=== PATIENT | female | born 1980 | race American Indian/Alaskan Native ===

== ENCOUNTER 2020-08-01 20:30 | Emergency (ER) | payer MEDICAID ==
--- NOTE | 2020-08-01 21:03 | Event Note ---
ED Screening Note Date of service: 08/01/20 ED Screening Note: Patient is a 40 yo AA female with a h/o mornid obesity and kidney stones who presents to the ED with complaint of acute onset persistent right flank pain that radiates to the right upper quadrant area with nausea and vomiting for the last 5 days. Patient states that these symptoms are similar to what she felt when she had kidney stones a few years ago and had to undergo lithotripsy procedure about 10 years ago. Patient states that the pain has been constant and persistent with lightheadedness. Patient also complains of dysuria, urinary frequency and urgency and "dark urine". Patient denies chest pain, shortness of breath, fever, chills, vaginal bleeding, diarrhea, dizziness, syncope, sore throat, headache, low back pain, change in vision or cough. This initial assessment/diagnostic orders/clinical plan/treatment(s) is/are subject to change based on patients health status, clinical progression and re- assessment by fellow clinical providers in the ED. Further treatment and workup at subsequent clinical providers discretion. Patient/guardian urged not to elope from the ED as their condition may be serious if not clinically assessed and managed. Initial orders include: CBC, CMP, lipase, UA, hCG serum, CT abdomen pelvis without contrast
[2020-08-01 21:34] LABS: Basophils % (Auto) 0.5 % (0.0-1.8); Eosinophils # (Auto) 0.2 K/mm3 (0.0-0.4); Eosinophils % (Auto) 2.3 % (0.0-4.3); Hemoglobin 12.3 gm/dl (10.1-14.3); Lymphocytes # (Auto) 2.3 K/mm3 (1.2-5.4); Lymphocytes % (Auto) 32.8 % (13.4-35.0); Mean Corpuscular HGB Conc 32 % (30-34); Mean Corpuscular Volume 85 fl (79-97); Monocytes # (Auto) 0.5 K/mm3 (0.0-0.8); Monocytes % (Auto) 6.7 % (0.0-7.3); Platelet Count 356 K/mm3 (140-440); Red Blood Count 4.47 M/mm3 (3.65-5.03)
[2020-08-01 21:50] LABS: Alanine Aminotransferase 10 units/L (7-56); Albumin 3.9 g/dL (3.9-5); BUN/Creatinine Ratio 16; Blood Urea Nitrogen 13 mg/dL (7-17); Calcium 8.9 mg/dL (8.4-10.2); Hemolysis Index 8
[2020-08-01] MEDS ORDERED: oxyCODONE /ACETAMINOPHEN 5-325MG TAB PO ONE (23:34)
--- NOTE | 2020-08-01 23:35 | Cat Scan Report ---
CT OF THE ABDOMEN AND PELVIS WITHOUT CONTRAST INDICATION / CLINICAL INFORMATION: Right flank and RUQ pain. TECHNIQUE: All CT scans at this location are performed using CT dose reduction for ALARA by means of automated e xposure control. COMPARISON: None available. FINDINGS: ABDOMEN: There is cortical scarring involving the right kidney, more prominent in the lower pole. The re are several tiny nonobstructive right renal calculi. There is no evidence of hydronephrosis. The l eft kidney is unremarkable. The gallbladder is surgically absent. The liver, spleen, bile ducts, pancreas, adrenal glands and bow el are normal. No adenopathy is seen. The lung bases are clear. PELVIS: The distal ureters and urinary bladder are normal. The uterus and ovaries are normal in appea tulio. A normal appendix is present and there is no evidence of diverticulitis. No abnormal mass or f luid collection is seen. I do not identify a hernia. No acute osseous abnormality is present. IMPRESSION: 1. Right renal cortical scarring and nonobstructive nephrolithiasis. 2. Prior cholecystectomy. 3. No acute intra-abdominal disease is identified. Signer Name: Álvaro Dawn MD Signed: 08/01/2020 11:31 PM Workstation Name: [id number]
--- NOTE | 2020-08-01 23:41 | Emergency Department Report ---
ED General Adult HPI - General Chief complaint: Abdominal Pain Stated complaint: ABDOMINAL PAIN/TOOTHACE PUI?: No Time Seen by Provider: 08/01/20 23:07 Source: patient, RN notes reviewed Mode of arrival: Ambulatory Limitations: No Limitations - History of Present Illness Initial comments: The patient was evaluated in the emergency department for symptoms described in the history of present illness. He/she was evaluated in the context of the global COVID-19 pandemic, which necessitated consideration that the patient might be at risk for infection with the virus that causes COVID-19. Institutional protocols and algorithms that pertain to the evaluation of patients at risk for COVID-19 are in a state of rapid change based on information released by regulatory bodies including the CDC and federal and state organizations. These policies and algorithms were followed during the patient's care in the emergency department. Please note that these policies, procedures and recommendations changed on a rapid basis. During the history and physical examination, I am chaperoned by nurse Sarah Yadav The patient is a 40-year-old female. She is not known to myself previously. She does not have a local primary care doctor. Past medical history includes obesity, sleep apnea, pulmonary embolism 10 years ago, and renal colic. The patient presents to the ER today with multiple complaints. Surgical history significant for lithotripsy, and cholecystectomy. Her first primary complaint is abdominal pain. Abdominal pain is epigastric, right upper quadrant, right flank, and right posterior back. It is present over the past 2 to 3 days. It is sharp and increases with palpation and decreases with rest. Positive dysuria. Patient states "it feels like a kidney stone." The patient's next complaint is dentalgia over tooth #22, 23, 24 and 25. She has not seen a dentist in years. She does not floss on a regular basis. The patient's next complaints is dizziness. She has been having intermittent spinning sensation and dizziness for the past year and a half, after mild blunt head injury. This dizziness is not a new, worsened or different. The patient's final complaint is intermittent shortness of breath. This has been going on for the past 2 to 3 days. The patient denies fever, loss of taste and smell, travel, surgery, oral contraceptive use, leg pain and leg swelling. Review of systems is negative for fever, chills, vomiting, chest pain, extremity weakness/numbness, ataxia. -: Gradual, days(s), week(s), month(s) Location: abdomen Radiation: back Quality: aching Consistency: intermittent Improves with: rest Worsens with: movement - Related Data Previous Rx's Medication Instructions Recorded Last Taken Type Acetaminophen [Non-Aspirin Extra 500 mg PO Q6HR PRN #30 tablet 08/02/20 Unknown Rx Strength] Chlorhexidine Mouthwash [Peridex] 15 ml MM BID #1 bottle 08/02/20 Unknown Rx Ibuprofen [Motrin] 600 mg PO Q8H PRN #30 tablet 08/02/20 Unknown Rx Metoclopramide [Reglan] 10 mg PO QID PRN #30 tablet 08/02/20 Unknown Rx Morphine Sulfate [Morphine Sulfate 7.5 mg PO Q6HR PRN #10 tablet 08/02/20 Unknown Rx IR] levoFLOXacin [Levaquin] 750 mg PO QDAY #6 tablet 08/02/20 Unknown Rx Allergies Allergy/AdvReac Type Severity Reaction Status Date / Time amoxicillin Allergy Hives Verified 08/01/20 21:35 Penicillins Allergy Hives Verified 08/01/20 21:36 Sulfa (Sulfonamide Allergy Hives Verified 08/01/20 21:36 Antibiotics) sulfamethoxazole Allergy Hives Verified 08/01/20 21:36 [From Bactrim] trimethoprim [From Bactrim] Allergy Hives Verified 08/01/20 21:36 ED Review of Systems ROS: Stated complaint: ABDOMINAL PAIN/TOOTHACE Other details as noted in HPI Constitutional: denies: fever Eyes: denies: vision change ENT: denies: epistaxis Respiratory: shortness of breath. denies: cough Cardiovascular: denies: chest pain Gastrointestinal: abdominal pain. denies: hematemesis, melena, hematochezia Genitourinary: dysuria Musculoskeletal: back pain Neurological: denies: weakness Hematological/Lymphatic: denies: easy bleeding ED Past Medical Hx - Past Medical History Previous Medical History?: Yes Hx Pulmonary Embolism: Yes (Was on Coumadin) Hx Kidney Stones: Yes Additional medical history: Sleep apnea - Surgical History Past Surgical History?: Yes Additional Surgical History: Lithotripsy for kidney stones - Medications Home Medications: Home Medications Medication Instructions Recorded Confirmed Last Taken Type Acetaminophen [Non-Aspirin Extra 500 mg PO Q6HR PRN #30 tablet 08/02/20 Unknown Rx Strength] Chlorhexidine Mouthwash [Peridex] 15 ml MM BID #1 bottle 08/02/20 Unknown Rx Ibuprofen [Motrin] 600 mg PO Q8H PRN #30 tablet 08/02/20 Unknown Rx Metoclopramide [Reglan] 10 mg PO QID PRN #30 tablet 08/02/20 Unknown Rx Morphine Sulfate [Morphine Sulfate 7.5 mg PO Q6HR PRN #10 tablet 08/02/20 Unknown Rx IR] levoFLOXacin [Levaquin] 750 mg PO QDAY #6 tablet 08/02/20 Unknown Rx ED Physical Exam - General Limitations: No Limitations General appearance: alert, in no apparent distress - Head Head exam: Present: atraumatic, normocephalic - Eye Eye exam: Present: normal appearance, PERRL, EOMI, other (Visual acuity intact to finger counting, color perception, reading at a close distance). Absent: nystagmus - ENT ENT exam: Present: normal exam, normal orophraynx, mucous membranes moist, normal external ear exam, other (Patient speaking in full sentences. There is no stridor or dysphonia. There is no elevation of the base of the tongue. Patient noted to have excessive dental tartar, with gingival inflammation. No odontogenic abscesses noted.) - Neck Neck exam: Present: normal inspection, full ROM. Absent: tenderness, meningismus - Respiratory Respiratory exam: Present: normal lung sounds bilaterally. Absent: respiratory distress, wheezes, rales, rhonchi, stridor, decreased breath sounds - Cardiovascular Cardiovascular Exam: Present: regular rate, normal rhythm, normal heart sounds. Absent: bradycardia, tachycardia, irregular rhythm, systolic murmur, diastolic murmur, rubs, gallop - GI/Abdominal GI/Abdominal exam: Present: soft, tenderness, other (Right upper quadrant tender, right flank tender. No right lower quadrant tenderness noted). Absent: distended, guarding, rebound, pulsatile mass - Extremities Exam Extremities exam: Present: normal inspection, full ROM, other (2+ pulses noted in the bilateral upper and lower extremities. There is no palpable cord. negative Homans sign. Muscular compartments are soft. The pelvis is stable.). Absent: pedal edema, calf tenderness - Back Exam Back exam: Present: normal inspection, full ROM. Absent: tenderness, CVA tenderness (R), CVA tenderness (L), paraspinal tenderness, vertebral tenderness - Neurological Exam Neurological exam: Present: alert, oriented X3, normal gait, other (There is no facial droop. The tongue is midline. Extraocular movements are intact bilaterally. There is 5 out of 5 strength in bilateral upper and lower extre mities. Sensation is intact to light touch bilateral upper and lower extremities. There is no past-pointing. There is no pronator drift.). Absent: motor sensory deficit - Psychiatric Psychiatric exam: Present: normal affect, normal mood - Skin Skin exam: Present: warm, dry, intact, normal color. Absent: rash ED Course Vital Signs 08/01/20 08/01/20 21:33 23:15 Temperature 98.9 F 98.3 F Pulse Rate 88 81 Respiratory 18 18 Rate Blood Pressure 121/78 Blood Pressure 114/73 [Left] O2 Sat by Pulse 98 98 Oximetry - Reevaluation(s) Reevaluation #1: 08/01/20 23:41 Differential diagnosis, including but not limited to: Pyelonephritis, renal colic, orthostasis, vagal event, pulmonary embolism, pulmonary hypertension, pulmonary embolism, pneumonia, physical deconditioning, poor dental hygiene Assessment and plan: 40-year-old female with multiple complaints. Complaint #1, abdominal pain, flank pain and dysuria. CT scan abdomen pelvis negative for surgical pathology. Urinalysis pending. Treat with oral medications. Reassess. Complaints #2, dentalgia. Patient needs to follow-up with a dentist. Discussed the importance of daily brushing and flossing, and proper oral hygiene. May discharge with Tylenol, ibuprofen, instructions to follow-up with dental, and chlorhexidine. Complaint #3, intermittent vertiginous dizziness, present for about a year and a half. GCS 15, NIH score of 0, nonfocal neurologic exam, walks with a steady gait. Supportive care, do not see indication for neuroimaging. Complete #4, intermittent shortness of breath, and discomfort with deep inspiration. Not currently tachycardic, tachypneic or hypoxic. However, she is obese, suspect noncompliance with CPAP/APAP probable component of pulmonary hypertension. However, she is not quite sure where her pulmonary embolism from 10 years ago came from. We will send D-dimer to risk stratify for pulmonary embolism, although I find the patient to be low pretest probability, obtain x- ray of the chest. Discussed the importance of appropriate diet and lifestyle modifications, weight loss, and water consumption. Reassess after initial data points. Reevaluation #2: 08/02/20 01:03 Reassessed. Feels improved. No active vomiting. Troponin negative x1. Symptoms present for days. Acute myocardial infarction excluded as per the [employer] clinical policy. Urinalysis suggestive of urinary tract infection. This is likely pyelonephritis. Patient tolerating liquid feeds, nontoxic-appearing, afebrile, with reassuring vital signs. Patient suitable for trial of oral outpatient antibiotic management. We will start Levaquin here in the emergency room, given her multiple allergies. Patient and I also discussed affordable prescription applications/[facility], explained to patient that she may obtain affordable prescriptions by shopping around. She verbalized understanding. D-dimer negative. Patient states that she has never had a formal sleep study and does not have a formal diagnosis of obstructive sleep apnea. I suspect that patient has undiagnosed obstructive sleep apnea, as she describes many of the classic symptoms. Patient instructed that she needs to follow-up with a sleep physician for formal outpatient sleep study. She verbalized understanding. She will need to follow-up with primary care, dental, and sleep physician. Patient observed in this ER for hours without clinical decompensation is suitable for trial of outpatient management. Emphasized the importance of weight loss, follow-up ED Medical Decision Making - Lab Data Result diagrams: 08/01/20 21:04 08/01/20 21:04 Vital Signs 08/01/20 21:33 Temperature 98.9 F Pulse Rate 88 Respiratory 18 Rate Blood Pressure 121/78 O2 Sat by Pulse 98 Oximetry Lab Results 08/01/20 08/01/20 08/01/20 Range/Units 21:04 21:04 21:04 WBC 7.0 (4.5-11.0) K/mm3 RBC 4.47 (3.65-5.03) M/mm3 Hgb 12.3 (10.1-14.3) gm/dl Hct 38.0 (30.3-42.9) % MCV 85 (79-97) fl MCH 28 (28-32) pg MCHC 32 (30-34) % RDW 14.0 (13.2-15.2) % Plt Count 356 (140-440) K/mm3 Lymph % (Auto) 32.8 (13.4-35.0) % Dillon % (Auto) 6.7 (0.0-7.3) % Eos % (Auto) 2.3 (0.0-4.3) % Baso % (Auto) 0.5 (0.0-1.8) % Lymph # (Auto) 2.3 (1.2-5.4) K/mm3 Dillon # (Auto) 0.5 (0.0-0.8) K/mm3 Eos # (Auto) 0.2 (0.0-0.4) K/mm3 Baso # (Auto) 0.0 (0.0-0.1) K/mm3 Seg Neutrophils % 57.7 (40.0-70.0) % Seg Neutrophils # 4.1 (1.8-7.7) K/mm3 Sodium 145 (137-145) mmol/L Potassium 3.5 L (3.6-5.0) mmol/L Chloride 108.4 H (98-107) mmol/L Carbon Dioxide 26 (22-30) mmol/L Anion Gap 14 mmol/L BUN 13 (7-17) mg/dL Creatinine 0.8 (0.6-1.2) mg/dL Estimated GFR > 60 ml/min BUN/Creatinine Ratio 16 % Glucose 106 H (65-100) mg/dL Calcium 8.9 (8.4-10.2) mg/dL Total Bilirubin 0.20 (0.1-1.2) mg/dL AST 14 (5-40) units/L ALT 10 (7-56) units/L Alkaline Phosphatase 64 (35-129) units/L Total Protein 6.6 (6.3-8.2) g/dL Albumin 3.9 (3.9-5) g/dL Albumin/Globulin Ratio 1.4 % Lipase 39 (13-60) units/L HCG, Qual Negative (Negative) - EKG Data 08/01/20 23:37 Sinus rhythm, 68 bpm. Normal axis, normal intervals, poor R wave progression, borderline high left ventricular voltage. Abnormal EKG. Not a STEMI. - Radiology Data Radiology results: report reviewed, image reviewed CT OF THE ABDOMEN AND PELVIS WITHOUT CONTRAST INDICATION / CLINICAL INFORMATION: Right flank and RUQ pain. TECHNIQUE: All CT scans at this location are performed using CT dose reduction for ALARA by means of automated exposure control. COMPARISON: None available. FINDINGS: ABDOMEN: There is cortical scarring involving the right kidney, more prominent in the lower pole. There are several tiny nonobstructive right renal calculi. There is no evidence of hydronephrosis. The left kidney is unremarkable. The gallbladder is surgically absent. The liver, spleen, bile ducts, pancreas, adrenal glands and bowel are normal. No adenopathy is seen. The lung bases are clear. PELVIS: The distal ureters and urinary bladder are normal. The uterus and ovaries are normal in appearance. A normal appendix is present and there is no evidence of diverticulitis. No abnormal mass or fluid collection is seen. I do not identify a hernia. No acute osseous abnormality is present. IMPRESSION: 1. Right renal cortical scarring and nonobstructive nephrolithiasis. 2. Prior cholecystectomy. 3. No acute intra-abdominal disease is identified. Signer Name: Álvaro Dawn MD Signed: 08/01/2020 10:31 PM Workstation Name: [id number] Critical care attestation.: If time is entered above; I have spent that time in minutes in the direct care of this critically ill patient, excluding procedure time. ED Disposition Clinical Impression: Pyelonephritis, Dentalgia, Acute abdominal pain in right upper quadrant Obesity Qualifiers: Obesity type: unspecified obesity type Obesity classification: unspecified obesity classification Serious obesity comorbidity presence: unspecified whether serious comorbidity present Qualified Code(s): E66.9 - Obesity, unspecified Dyspnea Qualifiers: Dyspnea type: other forms of dyspnea Qualified Code(s): R06.09 - Other forms of dyspnea Disposition: DC-01 TO HOME OR SELFCARE Is pt being admited?: No Does the pt Need Aspirin: No Condition: Stable Instructions: Abdominal Pain (ED), Shortness of Breath, Adult, [id number], Pyelonephritis, Adult, [id number], Obesity, Adult Additional Instructions: Patient most likely has a mild kidney infection. Take the antibiotics, pain medication as needed and directed, nausea medication as needed/directed. Do not drive or consume alcohol when taking the morphine sulfate for pain. Do not consume alcohol for the next week, while taking antibiotics. Cultures were sent today, and results will be available in the next 3 to 5 days. Please have a primary care doctor contact the medical records department to obtain culture results. Please follow-up with the primary care doctor, such as Dr. Lerner, Within the next week for repeat checkup/evaluation. Recommend that patient brush teeth at least twice daily, floss on a daily basis, and follow-up with a dentist within the next month. Recommend that patient drinks 6 cups of water per day indefinitely, and follow- up with a sleep physician, such as Dr. Patel or Dr Madrdi within the next month for outpatient sleep study. The patient most likely has obstructive sleep apnea. First-line treatment would be aggressive weight loss, exercise as t olerated, and modification of diet to avoid carbohydrates, and sugary drinks. However, strongly recommend outpatient follow-up with a sleep physician for sleep study, and probable initiation of CPAP/APAP. Noncompliance/inadequate treatment of sleep apnea may result in heart disease, stroke, disability, loss of quality of life, or . Please return to the emergency room right away with new pain, worsening pain, migration of pain, projectile vomiting, change in mental status, confusion, inab ility to tolerate liquid feeds, new, worsened or different symptoms not present on the initial emergency room evaluation. Referrals: SHRUTHI MADRID MD [Staff Physician] - as needed ROSA PATEL MD [Staff Physician] - as needed [facility] [Outside] - as needed KI LERNER MD [Staff Physician] - 7-10 days Heart Score - HEART Score History: Slightly suspicious EKG: Non-specific Age: < 45 Risk factors: 1-2 risk factors Troponin: < normal limit HEART Score: 2 - Critical Actions Critical Actions: 0-3 pts:0.9-1.7%risk of adverse cardiac event.Candidate for discharge
[2020-08-01 23:59] VITALS: BP 114/73
--- NOTE | 2020-08-02 00:06 | XRay Report ---
CHEST 1 VIEW 11:53 PM INDICATION / CLINICAL INFORMATION: Dyspnea. Right upper quadrant/flank pain. COMPARISON: None available. FINDINGS: SUPPORT DEVICES: None. HEART / MEDIASTINUM: The heart size and pulmonary vasculature are normal. LUNGS / PLEURA: No significant pulmonary or pleural abnormality. No pneumothorax. ADDITIONAL FINDINGS: The visualized upper abdomen is unremarkable. IMPRESSION: No acute findings. Signer Name: Álvaro Dawn MD Signed: 08/02/2020 12:02 AM Workstation Name: [id number]
[2020-08-02 00:31] LABS: INR 0.95 (0.87-1.13)
[2020-08-02 00:54] LABS: Bacteria,Urine 2+ /HPF (Negative); Bilirubin,Urine NEG (Negative); Blood,Urine NEG (Negative); Color,Urine Yellow (Yellow); Mucus,Urine 2+ /HPF; Protein,Urine <15 mg/dL mg/dL (Negative)
[2020-08-02] MEDS ORDERED: levoFLOXacin 750 MG TAB PO ONE (01:02)
== END 2020-08-02 01:25 | disposition home or self-care (01) ==
LOC: ED 20:30
DX: N12 Tubulo-interstitial nephritis, not specified as acute or chronic (principal); K08.89 Other specified disorders of teeth and supporting structures; E66.9 Obesity, unspecified; R06.00 Dyspnea, unspecified; Z79.899 Other long term (current) drug therapy; Z88.2 Allergy status to sulfonamides; Z88.8 Allergy status to other drugs, medicaments and biological substances
CPT/HCPCS: 36415; 71045; 74176; 80053; 81001; 83690; 84484; 84703; 85025; 85379; 85610; 87086; 93005

== ENCOUNTER 2020-08-11 12:45 | Emergency (ER) | payer MEDICAID ==
--- NOTE | 2020-08-11 13:39 | Emergency Department Report ---
ED Chest Pain HPI - General Chief Complaint: Chest Pain Stated Complaint: CHEST PAINS Time Seen by Provider: 08/11/20 13:38 Source: patient, EMS Mode of arrival: Stretcher Limitations: No Limitations - History of Present Illness Initial Comments: This is a 40-year old female who upon my encounter states that she is "hurting all over". She is in no distress. She is texting on her cell phone. After some prodding she does admit to me that she called the ambulance for chest pain and shortness of breath. It was somewhat surprising that that was not her chief complaint. In any case she describes the chest pain as midsternal and heavy. She states that she has not had this before. She does not describe ongoing dyspnea nor recent cough. She did state that she had some dizziness. She did not vomit. She did not have any apparent diaphoresis. She denies calf or thigh swelling or pain. She has had no recent travel. She does not take the control pill. She is not a smoker. She gives a negative family history for VTE and CAD. She states her father had a stroke. In any case at this time the chest pain etc. has subsided. It began not long before ambulance arrival. MD Complaint: chest pain -: Gradual, minutes(s) Onset: during rest Pain Location: substernal Pain Radiation: none Severity: moderate Quality: heaviness Consistency: now resolved Improves With: nothing Worsens With: nothing re: dyspnea Other Symptoms: other (Dizziness). denies: cough, fever, syncope Aspirin use within the Past 7 Days: (0) No - Related Data Previous Rx's Medication Instructions Recorded Last Taken Type Acetaminophen [Non-Aspirin Extra 500 mg PO Q6HR PRN #30 tablet 08/02/20 Unknown Rx Strength] Chlorhexidine Mouthwash [Peridex] 15 ml MM BID #1 bottle 08/02/20 Unknown Rx Ibuprofen [Motrin] 600 mg PO Q8H PRN #30 tablet 08/02/20 Unknown Rx Metoclopramide [Reglan] 10 mg PO QID PRN #30 tablet 08/02/20 Unknown Rx Morphine Sulfate [Morphine Sulfate 7.5 mg PO Q6HR PRN #10 tablet 08/02/20 Unknown Rx IR] levoFLOXacin [Levaquin] 750 mg PO QDAY #6 tablet 08/02/20 Unknown Rx Allergies Allergy/AdvReac Type Severity Reaction Status Date / Time amoxicillin Allergy Hives Verified 08/01/20 21:35 Penicillins Allergy Hives Verified 08/01/20 21:36 Sulfa (Sulfonamide Allergy Hives Verified 08/01/20 21:36 Antibiotics) sulfamethoxazole Allergy Hives Verified 08/01/20 21:36 [From Bactrim] trimethoprim [From Bactrim] Allergy Hives Verified 08/01/20 21:36 Heart Score - HEART Score History: Slightly suspicious EKG: Normal Age: < 45 Risk factors: No known risk factors Troponin: < normal limit HEART Score: 0 - Critical Actions Critical Actions: 0-3 pts:0.9-1.7%risk of adverse cardiac event.Candidate for discharge ED Review of Systems ROS: Stated complaint: CHEST PAINS Other details as noted in HPI Constitutional: denies: chills, fever Eyes: denies: eye pain, eye discharge, vision change ENT: denies: ear pain, throat pain Respiratory: shortness of breath. denies: cough, wheezing Cardiovascular: chest pain. denies: palpitations Endocrine: no symptoms reported Gastrointestinal: denies: abdominal pain, nausea, diarrhea Genitourinary: denies: urgency, dysuria, discharge Musculoskeletal: denies: back pain, joint swelling, arthralgia Skin: denies: rash, lesions Neurological: denies: headache, weakness, paresthesias Psychiatric: denies: anxiety, depression Hematological/Lymphatic: denies: easy bleeding, easy bruising ED Past Medical Hx - Past Medical History Previous Medical History?: Yes Hx Pulmonary Embolism: Yes (Was on Coumadin) Hx Kidney Stones: Yes Additional medical history: Sleep apnea - Surgical History Additional Surgical History: Lithotripsy for kidney stones - Social History Smoking Status: Former Smoker - Medications Home Medications: Home Medications Medication Instructions Recorded Confirmed Last Taken Type Acetaminophen [Non-Aspirin Extra 500 mg PO Q6HR PRN #30 tablet 08/02/20 Unknown Rx Strength] Chlorhexidine Mouthwash [Peridex] 15 ml MM BID #1 bottle 08/02/20 Unknown Rx Ibuprofen [Motrin] 600 mg PO Q8H PRN #30 tablet 08/02/20 Unknown Rx Metoclopramide [Reglan] 10 mg PO QID PRN #30 tablet 08/02/20 Unknown Rx Morphine Sulfate [Morphine Sulfate 7.5 mg PO Q6HR PRN #10 tablet 08/02/20 Unknown Rx IR] levoFLOXacin [Levaquin] 750 mg PO QDAY #6 tablet 08/02/20 Unknown Rx ED Physical Exam - General Limitations: Physical Limitation General appearance: alert, in no apparent distress, obese - Head Head exam: Present: atraumatic, normocephalic - Eye Eye exam: Present: normal appearance. Absent: scleral icterus - ENT ENT exam: Present: mucous membranes moist - Neck Neck exam: Present: normal inspection - Respiratory Respiratory exam: Present: normal lung sounds bilaterally. Absent: respiratory distress - Cardiovascular Cardiovascular Exam: Present: regular rate, normal rhythm. Absent: systolic murmur, diastolic murmur, rubs, gallop - GI/Abdominal GI/Abdominal exam: Present: soft, normal bowel sounds. Absent: distended, tenderness, guarding, rebound, rigid - Extremities Exam Extremities exam: Present: normal inspection. Absent: calf tenderness - Back Exam Back exam: Present: normal inspection - Neurological Exam Neurological exam: Present: alert, oriented X3, CN II-XII intact. Absent: motor sensory deficit - Psychiatric Psychiatric exam: Present: normal affect, normal mood - Skin Skin exam: Present: warm, dry, intact, normal color. Absent: rash ED Course Vital Signs 08/11/20 08/11/20 08/11/20 13:42 13:46 14:00 Temperature 98.2 F Pulse Rate 65 65 Respiratory 11 L 11 L Rate Blood Pressure 118/76 O2 Sat by Pulse 98 99 Oximetry - Reevaluation(s) Reevaluation #1: I reexamined the patient. She was actually sleeping. She was awoken. I asked her again about her history of blood clots. She now states that perhaps more than a decade ago she did have a pulmonary embolism and was on Coumadin for 6 months. Her prehospital EKG was also reviewed. It was normal. Patient now admits that the episode was associated with some situational stress. She is completely asymptomatic. Her D-dimer definitely not elevated. I think she is appropriate at this point for outpatient disposition. She will be referred for further evaluation with a local clinic and a wheel assembler. 08/11/20 15:15 KARLEY score - Karley Score Age > 65: (0) No Aspirin use within the Past 7 Days: (0) No 3 or more CAD Risk Factors: (0) No 2 or more Angina events in past 24 hrs: (0) No Known CAD with more than 50% Stenosis: (0) No Elevated Cardiac Markers: (0) No ST Deviation Greater than 0.5mm: (0) No KARLEY Score: 0 ED Medical Decision Making - Lab Data Result diagrams: 08/11/20 14:23 08/11/20 14:23 Laboratory Results - last 24 hr 08/11/20 08/11/20 14:23 14:23 WBC 5.5 RBC 3.90 Hgb 10.8 Hct 32.0 MCV 82 MCH 28 MCHC 34 RDW 13.7 Plt Count 295 Lymph % (Auto) 34.1 [place] % (Auto) 10.8 H Eos % (Auto) 1.1 Baso % (Auto) 0.7 Lymph # (Auto) 1.9 [place] # (Auto) 0.6 Eos # (Auto) 0.1 Baso # (Auto) 0.0 Seg Neutrophils % 53.3 Seg Neutrophils # 3.0 PT 13.0 INR 0.99 APTT 27.4 Laboratory Results - last 24 hr 08/11/20 08/11/20 08/11/20 14:23 14:23 14:23 WBC 5.5 RBC 3.90 Hgb 10.8 Hct 32.0 MCV 82 MCH 28 MCHC 34 RDW 13.7 Plt Count 295 Lymph % (Auto) 34.1 [place] % (Auto) 10.8 H Eos % (Auto) 1.1 Baso % (Auto) 0.7 Lymph # (Auto) 1.9 [place] # (Auto) 0.6 Eos # (Auto) 0.1 Baso # (Auto) 0.0 Seg Neutrophils % 53.3 Seg Neutrophils # 3.0 PT 13.0 INR 0.99 APTT 27.4 Sodium 137 Potassium 3.7 Chloride 101.7 Carbon Dioxide 29 Anion Gap 10 BUN 7 Glucose 86 Calcium 8.6 Total Bilirubin AST ALT Alkaline Phosphatase Troponin T < 0.010 Total Protein Albumin Albumin/Globulin Ratio 08/11/20 14:23 WBC RBC Hgb Hct MCV MCH MCHC RDW Plt Count Lymph % (Auto) [place] % (Auto) Eos % (Auto) Baso % (Auto) Lymph # (Auto) [place] # (Auto) Eos # (Auto) Baso # (Auto) Seg Neutrophils % Seg Neutrophils # PT INR APTT Sodium Potassium Chloride Carbon Dioxide Anion Gap BUN Glucose Calcium Total Bilirubin 0.60 AST 25 ALT 16 Alkaline Phosphatase 49 Troponin T Total Protein 5.8 L Albumin 3.8 L Albumin/Globulin Ratio 1.9 Laboratory Results - last 24 hr 08/11/20 08/11/20 08/11/20 14:23 14:23 14:23 WBC 5.5 RBC 3.90 Hgb 10.8 Hct 32.0 MCV 82 MCH 28 MCHC 34 RDW 13.7 Plt Count 295 Lymph % (Auto) 34.1 [place] % (Auto) 10.8 H Eos % (Auto) 1.1 Baso % (Auto) 0.7 Lymph # (Auto) 1.9 [place] # (Auto) 0.6 Eos # (Auto) 0.1 Baso # (Auto) 0.0 Seg Neutrophils % 53.3 Seg Neutrophils # 3.0 PT 13.0 INR 0.99 APTT 27.4 D-Dimer < 135.00 Sodium 137 Potassium 3.7 Chloride 101.7 Carbon Dioxide 29 Anion Gap 10 BUN 7 Creatinine 0.7 Estimated GFR > 60 BUN/Creatinine Ratio 10 Glucose 86 Calcium 8.6 Total Bilirubin Direct Bilirubin Indirect Bilirubin AST ALT Alkaline Phosphatase Troponin T < 0.010 Total Protein Albumin Albumin/Globulin Ratio 08/11/20 14:23 WBC RBC Hgb Hct MCV MCH MCHC RDW Plt Count Lymph % (Auto) [place] % (Auto) Eos % (Auto) Baso % (Auto) Lymph # (Auto) [place] # (Auto) Eos # (Auto) Baso # (Auto) Seg Neutrophils % Seg Neutrophils # PT INR APTT D-Dimer Sodium Potassium Chloride Carbon Dioxide Anion Gap BUN Creatinine Estimated GFR BUN/Creatinine Ratio Glucose Calcium Total Bilirubin 0.60 Direct Bilirubin < 0.2 Indirect Bilirubin 0.4 AST 25 ALT 16 Alkaline Phosphatase 49 Troponin T Total Protein 5.8 L Albumin 3.8 L Albumin/Globulin Ratio 1.9 - EKG Data -: EKG Interpreted by Me EKG shows normal: sinus rhythm, axis, intervals, QRS complexes, ST-T waves Rate: normal (Heart rate 60) - EKG Data Interpretation: normal EKG (Essentially normal EKG) Critical care attestation.: If time is entered above; I have spent that time in minutes in the direct care of this critically ill patient, excluding procedure time. ED Disposition Clinical Impression: Atypical chest pain Disposition: DC- TO HOME OR SELFCARE Is pt being admited?: No Does the pt Need Aspirin: No Condition: Stable Instructions: Chest Pain (ED), Nonspecific Chest Pain, Adult Additional Instructions: Return any recurrent symptoms at all for reevaluation. Follow-up at the local primary care clinic. I will also give you the name of the local wheel assembler. Referrals: BUZZ SUNG MD [Staff Physician] - 3-5 Days [facility] [Provider Group] - 2-3 Days
[2020-08-11 14:00] VITALS: BP 118/76
--- NOTE | 2020-08-11 14:26 | XRay Report ---
CHEST 1 VIEW 08/11/2020 2:18 PM INDICATION / CLINICAL INFORMATION: Chest Pain. COMPARISON: 08/01/2020 FINDINGS: SUPPORT DEVICES: None. HEART / MEDIASTINUM: No significant abnormality. LUNGS / PLEURA: No significant pulmonary or pleural abnormality. No pneumothorax. ADDITIONAL FINDINGS: No significant additional findings. IMPRESSION: 1. No acute findings. Signer Name: Bobby Franco MD Signed: 08/11/2020 2:22 PM Workstation Name: [id number]
[2020-08-11 14:45] LABS: Basophils % (Auto) 0.7 % (0.0-1.8); Eosinophils # (Auto) 0.1 K/mm3 (0.0-0.4); Eosinophils % (Auto) 1.1 % (0.0-4.3); Hemoglobin 10.8 gm/dl (10.1-14.3); Lymphocytes # (Auto) 1.9 K/mm3 (1.2-5.4); Lymphocytes % (Auto) 34.1 % (13.4-35.0); Mean Corpuscular HGB Conc 34 % (30-34); Mean Corpuscular Volume 82 fl (79-97); Monocytes # (Auto) 0.6 K/mm3 (0.0-0.8); Monocytes % (Auto) 10.8 % (0.0-7.3); Platelet Count 295 K/mm3 (140-440); Red Cell Distribution Width 13.7 % (13.2-15.2)
[2020-08-11 14:55] LABS: INR 0.99 (0.87-1.13)
[2020-08-11 14:56] LABS: Partial Thromboplastin Time 27.4 Sec. (24.2-36.6)
[2020-08-11 15:01] LABS: Blood Urea Nitrogen 7 mg/dL (7-17); Calcium 8.6 mg/dL (8.4-10.2); Hemolysis Index 9
[2020-08-11 15:03] LABS: Alanine Aminotransferase 16 units/L (7-56); Albumin 3.8 g/dL (3.9-5)
[2020-08-11 15:13] LABS: BUN/Creatinine Ratio 10; Bilirubin,Direct < 0.2 mg/dL (0-0.2)
== END 2020-08-11 15:50 | disposition home or self-care (01) ==
LOC: ED 12:45
DX: R07.89 Other chest pain (principal); R06.02 Shortness of breath; R42 Dizziness and giddiness; Z86.711 Personal history of pulmonary embolism; Z98.890 Other specified postprocedural states; Z87.891 Personal history of nicotine dependence; Z79.1 Long term (current) use of non-steroidal anti-inflammatories (NSAID); Z79.899 Other long term (current) drug therapy; Z88.1 Allergy status to other antibiotic agents; Z88.0 Allergy status to penicillin; Z88.2 Allergy status to sulfonamides; Z88.8 Allergy status to other drugs, medicaments and biological substances
CPT/HCPCS: 36415; 71045; 80048; 80076; 84484; 85025; 85379; 85610; 85730; 93005